=== PATIENT | male | born 1930 | race Caucasian/White ===

== ENCOUNTER 2021-03-25 09:53 | Inpatient (IN) | payer MEDICARE ==
[~2021-03-25] VITALS: Ht 175.3 cm; Wt 78.9 kg
[2021-03-25 10:22] LABS: BASOPHILS % 0.1 % (0.0-1.0); HEMOGLOBIN 15.2 g/dL (14.0-18.0); LYMPHOCYTES # (AUTO) 2.8 (1.0-3.2); LYMPHOCYTES % 33.5 % (18.0-39.1); MEAN CORPUSCULAR HEMOGLOBIN 31.2 pg (28-32); MEAN CORPUSCULAR HGB CONC 33.8 g/dL (31-35); MEAN CORPUSCULAR VOLUME 92.4 fL (81-99); MONOCYTES # (AUTO) 0.5 (0.2-0.8); NEUTROPHILS # (AUTO) 4.9 (2.1-6.9); NEUTROPHILS % 59.2 % (38.7-80.0); PLATELET COUNT 79 x10e3/uL (140-360); RED BLOOD COUNT 4.87 x10e6/uL (4.3-5.7); RED CELL DISTRIBUTION WIDTH 12.9 % (11.7-14.4)
[2021-03-25 10:40] LABS: INR 0.95; PROTHROMBIN TIME 13.4 seconds (11.9-14.5)
[2021-03-25 10:48] LABS: ALBUMIN 3.6 g/dL (3.5-5.0); ALBUMIN/GLOBULIN RATIO 1.3 (0.8-2.0); ANION GAP 15.3 mmol/L (8-16); CALCIUM 8.2 mg/dL (8.4-10.2); CREATININE, SERUM 1.15 mg/dL (0.72-1.25); POTASSIUM 3.3 mmol/L (3.5-5.1)
[2021-03-25 10:54] LABS: CREATINE KINASE MB 2.2 ng/mL (0-5.0)
[2021-03-25 11:37] LABS: BAND NEUTROPHILS % (MANUAL) 2 %; LYMPHOCYTES % (MANUAL) 21 % (19-48); MONOCYTES % (MANUAL) 10 % (3.4-9.0); NEUTROPHILS % (MANUAL) 67 % (40-74)
[2021-03-25 11:38] LABS: PLATELET ESTIMATE MODERATELY DECREASED; PLATELET MORPHOLOGY COMMENT NORMAL; RBC MORPHOLOGY COMMENT NORMAL
[2021-03-25] MEDS ORDERED: SODIUM CHLORIDE 0.9% 1000ML 1,000 ML IV STA (11:40)
[2021-03-25] MEDS ORDERED: CEFTRIAXONE 1 GM in SODIUM CHLORIDE 0.9% 50ML 50 ML IV ONE (11:45)
[2021-03-25] MEDS ORDERED: DEXAMETHASONE SOD PHOS 10 MG/1 ML VIAL IV ONE (11:45)
[2021-03-25] MEDS: SODIUM CHLORIDE 0.9% 1000ML 1,000 ML IV SCH ×2 (13:27→20:15)
[2021-03-25 14:00] VITALS: BP 157/83
[2021-03-25 14:09] VITALS: BP 157/83
[2021-03-25] MEDS ORDERED: SODIUM CHLORIDE 0.9% IV ONE (15:00)
[2021-03-25] MEDS ORDERED: REMDESIVIR IV ONE (15:00)
[2021-03-25] MEDS: ENOXAPARIN 30 MG/0.3 ML SYR SC SCH (17:00)
[2021-03-25] MEDS: ASCORBIC ACID 500 MG TAB PO SCH (17:21)
[2021-03-25 18:16] VITALS: BP 139/81
[2021-03-25 21:50] VITALS: BP 145/81
[2021-03-26] VITALS (8 sets, daily range): BP systolic 122–150; BP diastolic 72–92
[2021-03-26] MEDS: MELATONIN 5 MG TABLET PO SCH ×2 (01:28→20:21)
[2021-03-26 05:04] LABS: BASOPHILS % 0.1 % (0.0-1.0); HEMATOCRIT 38.7 % (38.2-49.6); HEMOGLOBIN 13.2 g/dL (14.0-18.0); LYMPHOCYTES % 41.9 % (18.0-39.1); MEAN CORPUSCULAR HEMOGLOBIN 31.7 pg (28-32); MEAN CORPUSCULAR HGB CONC 34.1 g/dL (31-35); MEAN CORPUSCULAR VOLUME 92.8 fL (81-99); MONOCYTES # (AUTO) 0.4 (0.2-0.8); MONOCYTES % 5.6 % (4.4-11.3); NEUTROPHILS # (AUTO) 3.7 (2.1-6.9); NEUTROPHILS % 51.3 % (38.7-80.0); PLATELET COUNT 76 x10e3/uL (140-360); RED BLOOD COUNT 4.17 x10e6/uL (4.3-5.7); RED CELL DISTRIBUTION WIDTH 12.8 % (11.7-14.4)
[2021-03-26] MEDS: SODIUM CHLORIDE 0.9% 1000ML 1,000 ML IV SCH ×3 (05:13→19:00)
[2021-03-26 05:29] LABS: ALBUMIN 3.2 g/dL (3.5-5.0); ALBUMIN/GLOBULIN RATIO 1.4 (0.8-2.0); ANION GAP 14.5 mmol/L (8-16); CALCIUM 7.9 mg/dL (8.4-10.2); CREATININE, SERUM 0.9 mg/dL (0.72-1.25); POTASSIUM 3.5 mmol/L (3.5-5.1)
[2021-03-26] MEDS: ENOXAPARIN 30 MG/0.3 ML SYR SC SCH ×2 (10:07→17:36)
[2021-03-26] MEDS: ZINC SULFATE 50 MG CAP PO SCH (10:07)
[2021-03-26] MEDS: CEFTRIAXONE 2 GM in SODIUM CHLORIDE 0.9% 100 ML IV SCH (10:07)
[2021-03-26] MEDS: ASCORBIC ACID 500 MG TAB PO SCH ×2 (10:07→17:35)
[2021-03-26] MEDS: DEXAMETHASONE SOD PHOS 10 MG/1 ML VIAL IV SCH (10:08)
[2021-03-26] MEDS: SODIUM CHLORIDE 0.9% IV SCH (15:51)
[2021-03-26] MEDS: REMDESIVIR IV SCH (15:51)
[2021-03-26 16:26] LABS: CLARITY,URINE CLEAR (CLEAR); COLOR,URINE YELLOW (YELLOW); KETONES,URINE NEGATIVE (NEGATIVE); LEUKOCYTE ESTERASE ,URINE NEGATIVE (NEGATIVE); NITRITE,URINE NEGATIVE (NEGATIVE); PROTEIN,URINE DIPSTICK 1+ (NEGATIVE); URINE UROBILINOGEN 0.2 mg/dL (0.2 - 1)
[2021-03-26 16:33] LABS: EPITHELIAL CELLS,URINE FEW /LPF; TRANSITIONAL EPI CELLS,URINE FEW
[2021-03-26 16:36] LABS: BACTERIA,URINE MANY /HPF
[2021-03-27] VITALS (10 sets, daily range): BP systolic 144–175; BP diastolic 75–88
[2021-03-27 05:48] LABS: BASOPHILS % 0.1 % (0.0-1.0); HEMATOCRIT 37.4 % (38.2-49.6); HEMOGLOBIN 12.6 g/dL (14.0-18.0); LYMPHOCYTES # (AUTO) 3.2 (1.0-3.2); LYMPHOCYTES % 36.5 % (18.0-39.1); MEAN CORPUSCULAR HEMOGLOBIN 31.6 pg (28-32); MEAN CORPUSCULAR HGB CONC 33.7 g/dL (31-35); MEAN CORPUSCULAR VOLUME 93.7 fL (81-99); MONOCYTES # (AUTO) 0.5 (0.2-0.8); MONOCYTES % 6.1 % (4.4-11.3); NEUTROPHILS % 56.2 % (38.7-80.0); PLATELET COUNT 89 x10e3/uL (140-360); RED BLOOD COUNT 3.99 x10e6/uL (4.3-5.7); RED CELL DISTRIBUTION WIDTH 12.8 % (11.7-14.4)
[2021-03-27] MEDS: SODIUM CHLORIDE 0.9% 1000ML 1,000 ML IV SCH ×3 (05:51→20:15)
[2021-03-27 06:10] LABS: ALBUMIN/GLOBULIN RATIO 1.5 (0.8-2.0); ANION GAP 11.5 mmol/L (8-16); CALCIUM 7.7 mg/dL (8.4-10.2); CREATININE, SERUM 0.85 mg/dL (0.72-1.25); POTASSIUM 3.5 mmol/L (3.5-5.1)
[2021-03-27] MEDS: ENOXAPARIN 30 MG/0.3 ML SYR SC SCH ×2 (08:35→17:42)
[2021-03-27] MEDS: DEXAMETHASONE SOD PHOS 10 MG/1 ML VIAL IV SCH (08:35)
[2021-03-27] MEDS: ZINC SULFATE 50 MG CAP PO SCH (08:35)
[2021-03-27] MEDS: CEFTRIAXONE 2 GM in SODIUM CHLORIDE 0.9% 100 ML IV SCH (08:35)
[2021-03-27] MEDS: ASCORBIC ACID 500 MG TAB PO SCH ×2 (08:35→17:42)
[2021-03-27] MEDS ORDERED: REMDESIVIR 200MG 200 MG in SODIUM CHLORIDE 0.9% 100 ML 100 ML IV ONE (11:00)
[2021-03-27] MEDS: REMDESIVIR IV SCH (14:49)
[2021-03-27] MEDS: SODIUM CHLORIDE 0.9% IV SCH (14:49)
[2021-03-27] MEDS: MELATONIN 5 MG TABLET PO SCH (20:21)
[2021-03-28] VITALS (8 sets, daily range): BP systolic 155–189; BP diastolic 82–93
[2021-03-28] MEDS: SODIUM CHLORIDE 0.9% 1000ML 1,000 ML IV SCH (00:22)
[2021-03-28 05:01] LABS: BASOPHILS % 0.2 % (0.0-1.0); HEMATOCRIT 42.7 % (38.2-49.6); HEMOGLOBIN 14.8 g/dL (14.0-18.0); LYMPHOCYTES # (AUTO) 4.6 (1.0-3.2); LYMPHOCYTES % 35.6 % (18.0-39.1); MEAN CORPUSCULAR HEMOGLOBIN 31.9 pg (28-32); MEAN CORPUSCULAR HGB CONC 34.7 g/dL (31-35); MONOCYTES # (AUTO) 0.7 (0.2-0.8); NEUTROPHILS # (AUTO) 7.6 (2.1-6.9); NEUTROPHILS % 58.1 % (38.7-80.0); PLATELET COUNT 104 x10e3/uL (140-360); RED BLOOD COUNT 4.64 x10e6/uL (4.3-5.7); RED CELL DISTRIBUTION WIDTH 12.7 % (11.7-14.4)
[2021-03-28 05:22] LABS: ALBUMIN 3.6 g/dL (3.5-5.0); ALBUMIN/GLOBULIN RATIO 1.5 (0.8-2.0); ANION GAP 14.4 mmol/L (8-16); CALCIUM 8.1 mg/dL (8.4-10.2); CREATININE, SERUM 0.85 mg/dL (0.72-1.25); POTASSIUM 3.4 mmol/L (3.5-5.1)
[2021-03-28] MEDS: ZINC SULFATE 50 MG CAP PO SCH (09:38)
[2021-03-28] MEDS: ASCORBIC ACID 500 MG TAB PO SCH ×2 (09:38→17:17)
[2021-03-28] MEDS: DEXAMETHASONE SOD PHOS 10 MG/1 ML VIAL IV SCH (09:38)
[2021-03-28] MEDS: CEFTRIAXONE 2 GM in SODIUM CHLORIDE 0.9% 100 ML IV SCH (09:38)
[2021-03-28] MEDS: ENOXAPARIN 30 MG/0.3 ML SYR SC SCH ×2 (09:38→17:17)
[2021-03-28] MEDS: CHLORTHALIDONE 25 MG TAB PO SCH (11:00)
[2021-03-28] MEDS: REMDESIVIR IV SCH (13:32)
[2021-03-28] MEDS: SODIUM CHLORIDE 0.9% IV SCH (13:32)
[2021-03-28] MEDS ORDERED: REMDESIVIR 100MG 100 MG in SODIUM CHLORIDE 0.9% 100 ML IV SCH (14:00)
[2021-03-28] MEDS: MELATONIN 5 MG TABLET PO SCH (21:00)
[2021-03-29 00:35] VITALS: BP 152/95
[2021-03-29 04:48] VITALS: BP 156/92
[2021-03-29 05:12] LABS: BASOPHILS % 0.2 % (0.0-1.0); EOSINOPHILS % 0.1 % (0.0-6.0); HEMATOCRIT 39.9 % (38.2-49.6); HEMOGLOBIN 14.2 g/dL (14.0-18.0); LYMPHOCYTES # (AUTO) 2.6 (1.0-3.2); LYMPHOCYTES % 25.3 % (18.0-39.1); MEAN CORPUSCULAR HEMOGLOBIN 31.7 pg (28-32); MEAN CORPUSCULAR HGB CONC 35.6 g/dL (31-35); MEAN CORPUSCULAR VOLUME 89.1 fL (81-99); MONOCYTES # (AUTO) 0.5 (0.2-0.8); MONOCYTES % 5.2 % (4.4-11.3); NEUTROPHILS # (AUTO) 7.1 (2.1-6.9); NEUTROPHILS % 67.9 % (38.7-80.0); PLATELET COUNT 97 x10e3/uL (140-360); RED BLOOD COUNT 4.48 x10e6/uL (4.3-5.7); RED CELL DISTRIBUTION WIDTH 12.6 % (11.7-14.4)
[2021-03-29 07:59] VITALS: BP 151/78
[2021-03-29 08:00] VITALS: BP 151/78
[2021-03-29 08:49] LABS: ALBUMIN 3.4 g/dL (3.5-5.0); ALBUMIN/GLOBULIN RATIO 1.4 (0.8-2.0); ANION GAP 16.2 mmol/L (8-16); CREATININE, SERUM 0.87 mg/dL (0.72-1.25); POTASSIUM 3.2 mmol/L (3.5-5.1)
[2021-03-29] MEDS: DEXAMETHASONE SOD PHOS 10 MG/1 ML VIAL IV SCH (09:15)
[2021-03-29] MEDS: ZINC SULFATE 50 MG CAP PO SCH (09:16)
[2021-03-29] MEDS: CHLORTHALIDONE 25 MG TAB PO SCH (09:16)
[2021-03-29] MEDS: ENOXAPARIN 30 MG/0.3 ML SYR SC SCH ×2 (09:16→16:32)
[2021-03-29] MEDS: ASCORBIC ACID 500 MG TAB PO SCH ×2 (09:16→16:32)
[2021-03-29] MEDS ORDERED: POTASSIUM CHLORIDE 20 MEQ TAB CR PO ONE (10:30)
[2021-03-29 12:00] VITALS: BP 150/79
[2021-03-29] MEDS: REMDESIVIR IV SCH (13:01)
[2021-03-29] MEDS: SODIUM CHLORIDE 0.9% IV SCH (13:01)
[2021-03-29 15:55] VITALS: BP 128/89
[2021-03-29] MEDS ORDERED: VITAMIN C500 MG PO (18:36)
[2021-03-29] MEDS ORDERED: DEXAMETHASONE4 MG PO (18:36)
[2021-03-29] MEDS ORDERED: Zinc PO (18:36)
[2021-03-30] MEDS ORDERED: DEXAMETHASONE 4 MG TAB PO SCH ×2 (09:00)
== END 2021-03-29 19:05 | disposition home or self-care (01) | DRG 177 ==
LOC: ER 09:59 → ERHOLD 12:06 → MED/SURG2 13:50
PROVIDERS: ADMIT Family Medicine; ATTEND Family Medicine
PROC: 8E0ZXY6 Isolation (ICD-10-PCS; 2021-03-25)
PROC: XW033E5 Introduction of Remdesivir Anti-infective into Peripheral Vein, Percutaneous Approach, New Technology Group 5 (ICD-10-PCS; principal; 2021-03-27)
DX: U07.1 COVID-19 (principal); J96.01 Acute respiratory failure with hypoxia; J12.82 Pneumonia due to coronavirus disease 2019; E87.6 Hypokalemia; I10 Essential (primary) hypertension
CPT/HCPCS: 36415; 36569; 71045; 80053; 81001; 82550; 82553; 82948; 83518; 83605; 83735; 83880; 84484; 85025; 85610; 85730; 87040; 87070; 87086; 87205; 93005; 94799; 99284; J0456; J0696; J1100; J1650; J7030; J7050; U0002